=== PATIENT | female | born 1990 ===

== ENCOUNTER 2016-08-08 08:05 | Observation (INO) | payer SELFPAY ==
[2016-08-08] MEDS ORDERED: Phenylephrine 1% Nasal Spray (15 ml) NAS STA (08:12)
[2016-08-08] MEDS ORDERED: Sodium Chloride 0.9% 1,000 ML IV ONE ×2 (08:13→11:27)
--- NOTE | 2016-08-08 08:15 | C.PDOC ---
History Of Present Illness 26-year-old female, is brought to the emergency department by EMS and bystander (acting as historian) with complaints of respiratory distress. Hx limited due to clinical condition. Patient w/ accidental aspiration after taking Rx Motrin pill just prior to arrival. Patient split the pill and swallowed, after which she developed difficulty breathing, and was brought to the ED for further evaluation. Chief Complaint (Nursing): Respiratory Distress Past Medical History Reviewed: Historical Data, Nursing Documentation, Vital Signs Vital Signs: Last Vital Signs Temp 98.7 F 08/08/16 08:06 Pulse 76 08/08/16 08:44 Resp 20 08/08/16 08:44 BP 131/83 08/08/16 08:44 Pulse Ox 100 08/08/16 11:34 Family History: States: Unknown Family Hx Review Of Systems Review Of Systems: ROS cannot be obtained secondary to pt's inabilty to answer questions. Physical Exam - Physical Exam Appears: Other (severe distress. actively coughing. awake. drooling) Head: Atraumatic, Normacephalic Eye(s): bilateral: Normal Inspection, PERRL Neck: Normal ROM Chest: Symmetrical Respiratory: No Stridor, Other (equal breath sounds B/L) Extremity: Normal ROM Neurological/Psych: Oriented x3, Normal Speech ED Course And Treatment - Laboratory Results Result Diagrams: 08/08/16 11:46 08/08/16 11:46 ECG: Interpreted By Me ECG Rhythm: Sinus Rhythm Interpretation Of ECG: twi iii Rate From EC O2 Sat by Pulse Oximetry: 100 Pulse Ox Interpretation: Normal - Radiology CXR: Interpreted by Me CXR Interpretation: Yes: No Acute Disease, Other (NO GROSS FB) - Other Rad NECK X-Ray: Interpreted by Me (NEG) Progress - Time Time: 08:00 - Re-Evaluation Re-evaluation Note: 08:00 Case discussed w/ Dr Gordillo, states he will present to ED to evaluate the patient. Case was discussed w/ pulmonary, Dr Amin for consult, states he will evaluate the patient. Case also discussed w/ Dr Price ENT, states he will evaluate patient at bedside. 08/08/16 08:24 BREATHING, MOD DIST. ACTIVELY DROOLING, SPITTING. STATES UNABLE TO SWALLOW SALIVA 100% RA. POSSIBLE ESOPH OBSTRUCT. PENDING ENT ER EVAL, ANESTHESIA AWARE 08/08/16 09:07 S/P EVAL DR PRICE NO VISUALIZED UPPER AIR FB. CO PERSIST FB SENSATION. VSS. WILL CT 08/08/16 10:[address] SCAN. S/P ATIVAN. PERSIST COUGHING, POOR SALIVA CONTROL 08/08/16 10:44 D/W DR SPICER GI JINGLE WRITER AWARE OF ER FINDINGS WILL EVAL IN MINISTER OF RELIGION STATES PT NOW CONSENTS TO CT SCAN. 08/08/16 11:26 EXAM UNCH PRIOR. S/P EVAL GI FELLOW, PENDING CT REPORT - Data Reviewed Data Reviewed: Diagnostic imaging - Critical Care Citical Care: Excluding Proc Time Critical Care Time: 120 minutes - Continuity of Care Discussed patient case with:: Patient Discussed pt. case with retirement sales consultant/specialty: Anesthesiology, Gastroenterology, Otolaryngology Medical Decision Making Medical Decision Making: Impression Plan: * Chest X-Ray * Phenylephrine, IVF * Reassess and Disposition Disposition Counseled Patient/Family Regarding: Studies Performed, Diagnosis - Disposition Disposition: HOSPITALIZED Disposition Time: 11:31 Condition: STABLE - POA Present On Arrival: None - Clinical Impression Clinical Impression: Esophageal obstruction - Scribe Statement The provider has reviewed the documentation as recorded by the Scribe Tamra Steward All medical record entries made by the Scribe were at my direction and personally dictated by me. I have reviewed the chart and agree that the record accurately reflects my personal performance of the history, physical exam, medical decision making, and the department course for this patient. I have also personally directed, reviewed, and agree with the discharge instructions and disposition. Decision To Admit - Pt Status Changed To: Hospital Disposition Of: Observation - . Bed Request Type: Regular Admitting Physician: Jace Cota Patient Diagnosis: Esophageal obstruction
--- NOTE | 2016-08-08 08:34 | RAD ---
PROCEDURE: CHEST RADIOGRAPH, 1 VIEW HISTORY: choking ro fb COMPARISON: None available. FINDINGS: LUNGS: Clear. PLEURA: No pneumothorax or pleural fluid seen. CARDIOVASCULAR: Normal. OSSEOUS STRUCTURES: No significant abnormalities. VISUALIZED UPPER ABDOMEN: Normal. OTHER FINDINGS: No radiopaque foreign body identified. Nipple ornamentation. IMPRESSION: No focal airspace opacity.
[2016-08-08 08:57] VITALS: O2SAT 100
--- NOTE | 2016-08-08 09:18 | OP ---
PROCEDURE DATE: 08/08/2016 PREOPERATIVE DIAGNOSIS: Dysphagia. POSTOPERATIVE DIAGNOSIS: Dysphagia. PROCEDURE: Flexible laryngoscopy. SIGNIFICANT FINDINGS: No foreign body noted in the throat. DESCRIPTION OF PROCEDURE: The patient was placed in a seated position. The nose has been decongeste d with Afrin and Kelvin-Synephrine. A 0 degree flexible laryngoscope was inserted into the left nasal c avity, passed through the nasopharynx, oropharynx, hypopharynx. The pharyngeal claudio, base of tongue , vallecula, epiglottis, AE folds, false cords, true cords were brought into view. No masses or lesi ons were noted. Secretions were noted in the pyriform sinuses. However, no foreign bodies were note d. The scope was removed. The patient tolerated the procedure well. Dennis Krishnan MD cc: [id number] TT: 08/08/2016 09:16:51 ak
--- NOTE | 2016-08-08 10:22 | RAD ---
PROCEDURE: Radiographs of the neck (soft tissue). HISTORY: CHOKING RO FB COMPARISON: None. TECHNIQUE: Frontal and Lateral Radiographs of the neck, optimized for soft tissue visualization. FINDINGS: SOFT TISSUES: Unremarkable. No radiopaque foreign body seen. CERVICAL SPINE: Grossly unremarkable. OTHER FINDINGS: None. IMPRESSION: Unremarkable radiographs of the soft tissues of the neck. Further imaging can be obtained as per clinical indications.
--- NOTE | 2016-08-08 11:17 | CT ---
PROCEDURE: CT NECK WITHOUT CONTRAST HISTORY: CHOKING RO FOREIGN BODY PILL COMPARISON: None. TECHNIQUE: CT of the neck without intravenous contrast. Coronal and sagittal reformats generated. Radiation dose: DLP 473.56 mGy-cm This CT exam was performed using one or more of the following dose reduction techniques: Automated exposure control, adjustment of the mA and/or kV according to patient size, and/or use of iterative reconstruction technique. FINDINGS: NASOPHARYNX: Unremarkable. SUPRAHYOID NECK: Unremarkable oropharynx, oral cavity, parapharyngeal space and retropharyngeal space. INFRAHYOID NECK: Unremarkable larynx, hypopharynx, and supraglottic space. Vocal cords intact. MASS: None. GLANDS: Parotid and submandibular glands unremarkable. Normal size thyroid gland, without nodule. LYMPH NODES: Normal. No lymphadenopathy. CERVICAL SPINE: No fracture or focal lesion. OTHER FINDINGS: No evidence of radiopaque foreign body in the neck. There is moderate thickening of the proximal esophagus seen at the thoracic inlet. There is heterogeneous low density seen in the in the lumen of the proximal esophagus lumen may represent foreign body or food debris. IMPRESSION: No evidence of radiopaque foreign body in the neck. Moderate thickening of the proximal esophagus seen at the lower neck and thoracic inlet. Heterogeneous low density seen in the lumen of the proximal esophagus ,may represent foreign body or food debris. If indicated further assessment by esophagram may be obtained. Incidentally noted is moderate maxillary sinus mucosal thickening.
--- NOTE | 2016-08-08 11:25 | CT ---
PROCEDURE: CT Chest without contrast HISTORY: R/O FB COMPARISON: None. TECHNIQUE: Contiguous axial images were obtained through the chest without intravenous contrast enhancement. Sagittal and coronal reconstructions were performed. Radiation dose (DLP): 206.42 mGy-cm. This CT exam was performed using one or more of the following dose reduction techniques: Automated exposure control, adjustment of the mA and/or kV according to patient size, and/or use of iterative reconstruction technique. FINDINGS: LUNGS: Clear lungs. Visualized airway clear. MEDIASTINUM: There is proximal esophagus mucosal thickening seen. There is focal hypodensity at the lumen of the proximal esophagus best seen on image 17 series 4 may represent low density foreign body versus fold debris. Unremarkable thoracic aorta. No aneurysm. Normal sized heart. Main pulmonary artery unremarkable. No vascular congestion. No lymphadenopathy. PLEURA: No pleural fluid. No pneumothorax. BONES: No fracture. No destructive lesion. UPPER ABDOMEN: Grossly unremarkable. OTHER FINDINGS: None. IMPRESSION: Thickening of the proximal esophagus at the thoracic inlet and lower neck. Focal hypodensity in the lumen of the proximal esophagus may represents foreign body versus food debris. Further assessment by esophagram may be obtained if clinically warranted.
--- NOTE | 2016-08-08 11:37 | CP.PCM.CON ---
<Jaskaran Napier - Last Filed: 08/08/16 11:31> History of Present Illness - History of Present Illness History of Present Illness: PGY4 GI Fellow Consult Note Patient is a 26yo female with no significant PMHx who presents today to the ED with complaint of dysphagia and globus sensation. She states that earlier today she went to take half an ibuprofen and upon swallowing the pill, noted that it got stuck in her esophagus. Since that time she has been trying to drink water without successful passage of this obstruction. She also has tried inducing vomiting and had her boyfriend/telephonic case manager perform the Heimlich maneuver without relief of symptoms. She notes that this is not the first time she has suffered with symptoms like this, however other methods have been successful prior to coming to the hospital. She has encountered difficulty swallowing solid food in the past and notes that she must chew deliberately before swallowing. A CT performed in the ED does reveal proximal esophageal inflammation with a more distal opacity suggestive of foreign body (presumably the pill). She admits to pain in her throat and inability to swallow her saliva. Denies any SOB, abdominal pain, fever, chills. She has never had a GI evaluation or endoscopy in the past. PMHx: Denies PSHx: Denies FHx: Mother - DM, Brother - PUD Social: Denies tobacco, EtOH or illicit drug use Endo: No prior endoscopic evaluation Review of Systems - Constitutional Constitutional: absent: Anorexia, Chills, Fever, Weight Loss - EENT Eyes: absent: Change in Vision Nose/Mouth/Throat: Dysphagia, Sore Throat - Cardiovascular Cardiovascular: absent: Chest Pain, Dyspnea, Edema - Respiratory Respiratory: absent: Cough, Dyspnea, Excessive Mucous Production - Gastrointestinal Gastrointestinal: Dysphagia. absent: Abdominal Pain, Belching, Bloating, Constipation, Cramping, Diarrhea, Dyspepsia, Hematemesis, Hematochezia, Melena, Nausea, Vomiting - Genitourinary Genitourinary: absent: Dysuria, Urinary Frequency, Urinary Urgency - Musculoskeletal Musculoskeletal: absent: Back Pain, Neck Pain - Integumentary Integumentary: absent: New Lesions, Rash - Neurological Neurological: absent: Dizziness, Numbness, Focal Weakness - Psychiatric Psychiatric: absent: Anxiety, Depression - Endocrine Endocrine: absent: Polydipsia, Polyphagia, Polyuria - Hematologic/Lymphatic Hematologic: absent: Easy Bleeding, Easy Bruising, Lymphadenopathy Past Patient History - Past Social History Smoking Status: Never Smoked - PSYCHIATRIC Hx Substance Use: Yes (social) - SURGICAL HISTORY Hx Surgeries: No - ANESTHESIA Hx Anesthesia: No Meds Allergies/Adverse Reactions: Allergies Allergy/AdvReac Type Severity Reaction Status Date / Time No Known Allergies Allergy Verified 08/08/16 08:12 - Medications Medications: Current Medications Sodium Chloride (Sodium Chloride 0.9%) 1,000 mls @ 100 mls/hr IV .Q10H ONE Stop: 08/08/16 21:26 Physical Exam - Constitutional Appears: Non-toxic - Eye Exam Eye Exam: EOMI, PERRL - ENT Exam ENT Exam: Mucous Membranes Moist, Normal Oropharynx - Neck Exam Neck exam: Negative for: Lymphadenopathy - Respiratory Exam Respiratory Exam: Clear to Auscultation Bilateral. absent: Rales, Rhonchi, Wheezes - Cardiovascular Exam Cardiovascular Exam: RRR, +S1, +S2 - GI/Abdominal Exam GI & Abdominal Exam: Normal Bowel Sounds, Soft. absent: Firm, Guarding, Organomegaly, Rigid, Tenderness - Extremities Exam Extremities exam: Positive for: normal inspection. Negative for: pedal edema - Neurological Exam Neurological exam: Alert, Oriented x3 - Psychiatric Exam Psychiatric exam: Normal Affect, Normal Mood - Skin Skin Exam: Dry, Warm Results - Vital Signs Recent Vital Signs: Last Vital Signs Temp 98.7 F 08/08/16 08:06 Pulse 76 08/08/16 08:44 Resp 20 08/08/16 08:44 BP 131/83 08/08/16 08:44 Pulse Ox 100 08/08/16 11:26 Assessment & Plan - Assessment and Plan (Free Text) Assessment: Patient is a 26yo female with no significant PMHx who presents today to the ED with complaint of dysphagia and globus sensation -Globus sensation with concern for foreign body impaction in the distal esophagus -Dysphagia Plan: -CT chest/neck reviewed; foreign body suspected -Stat CBC, BMP, urine hCG -NPO -Plan for emergent endoscopic evaluation at this time -Further plan following findings of EGD - Date & Time Date: 08/08/16 Time: 11:44 <Owen Sainz MD - Last Filed: 08/08/16 12:43> Meds - Medications Medications: Current Medications Sodium Chloride (Sodium Chloride 0.9%) 1,000 mls @ 100 mls/hr IV .Q10H ONE Stop: 08/08/16 21:26 Results - Vital Signs Recent Vital Signs: Last Vital Signs Temp 98.4 F 08/08/16 12:18 Pulse 77 08/08/16 12:18 Resp 20 08/08/16 12:18 BP 119/62 08/08/16 12:18 Pulse Ox 100 08/08/16 12:18 - Labs Result Diagrams: 08/08/16 11:46 08/08/16 11:46 Labs: Laboratory Results - last 24 hr 08/08/16 08/08/16 08/08/16 11:46 11:54 12:18 WBC 6.8 RBC 5.14 Hgb 7.7 L Hct 28.1 L MCV 54.6 L MCH 15.0 L MCHC 27.5 L RDW 20.1 H Plt Count 349 MPV 9.0 Neut % (Auto) 49.3 L Lymph % (Auto) 33.6 Luce % (Auto) 5.9 Eos % (Auto) 10.8 H Baso % (Auto) 0.4 Neut # 3.4 Lymph # 2.3 Luce # 0.4 Eos # 0.7 Baso # 0.0 Differential Comment PT 11.2 INR 1.0 APTT 28 Sodium 141 Potassium 4.0 Chloride 104 Carbon Dioxide 20 L Anion Gap 21 H BUN 12 Creatinine 0.6 L Est GFR ( Amer) > 60 Est GFR (Non-Af Amer) > 60 Random Glucose 79 Calcium 9.1 Beta HCG, Quant < 2.39 Urine HCG, Qual Negative Blood Type O POSITIVE Attending/Attestation - Attestation I have personally seen and examined this patient.: Yes I have fully participated in the care of the patient.: Yes I have reviewed all pertinent clinical information: Yes Notes (Text): 08/08/16 12:40 This is a 26 yr old F with no past medical history presented to ER with food stuck and globus sensation in esophagus. States had previous such episodes without endoscopic evaluation. Planned for urgent endoscopy with CT findings of thickening of proximal esophagus with food bolus NPO Intubation Urgent EGD Risks, complication including bleeding, perforation explained to the patient and the boyfriend Consent signed
[2016-08-08 11:51] LABS: BASO % 0.4 % (0.0-2.0); EOS # 0.7 K/uL (0.0-0.7); EOS % 10.8 % (0.0-4.0); HEMATOCRIT 28.1 % (34.0-47.0); LYMPH # 2.3 K/uL (1.0-4.3); LYMPH % 33.6 % (20.0-40.0); MEAN CORPUSCULAR HGB CONC 27.5 g/dL (33.0-37.0); MONO # 0.4 K/uL (0.0-0.8); MONO % 5.9 % (0.0-10.0); RED CELL DISTRIBUTION WIDTH 20.1 % (11.5-14.5); WHITE BLOOD COUNT 6.8 K/uL (4.8-10.8)
[2016-08-08 11:53] LABS: MEAN CELL VOLUME 54.6 fL (81.0-99.0)
[2016-08-08 11:59] LABS: CHLORIDE 104 mmol/L (98-107); SODIUM 141 mmol/L (132-148)
[2016-08-08 12:02] LABS: BLOOD UREA NITROGEN 12 mg/dL (7-17); CARBON DIOXIDE 20 mmol/L (22-30); GFR AFRICAN-AMERICAN > 60
[2016-08-08 12:03] LABS: CALCIUM 9.1 mg/dl (8.6-10.4); GLUCOSE,RANDOM 79 mg/dL (65-105)
[2016-08-08] MEDS ORDERED: Lactated Ringer's 500 ML IV ONE ×2 (12:16)
--- NOTE | 2016-08-08 16:12 | CP.PCM.HP ---
<Cindy Gordon - Last Filed: 08/08/16 16:31> History of Present Illness - History of Present Illness History of Present Illness: CC: "pill got stuck in my throat" HPI: Patient is a 26 year old female with no significant past medical history who presented to the emergency department with complaint of dysphagia as earlier today she tried taking part of an ibuprofen for toothache and upon swallowing noted the pill to get stuck in her esophagus. She reported associated shortness of breath and throat pain. Patient attempted to drink water to pass the pill but was unsuccessful. She also tried inducing vomiting without relief of symptoms. Patient admits to cough that was blood tinged. Patient admits to history of "throat tightening" with swallowing pills since she was a child. She states she experiences similar symptoms with swallowing solid food and needs to thoroughly chew prior to swallowing. Patient reports on her way to endoscopy she was able to swallow the pill. Currently she denies abdominal pain, fever, chills, chest pain, shortness of breath, diarrhea, constipation, and hematochezia. Patient denies prior history of anemia. She does admit to feeling more fatigue recently and occasional shortness of breath. Patient states her menstrual cycles are regular and denies heavy bleeding. She denies family history of blood disorder. PMD: none PMHx: Denies Allergies: NKDA PSHx: Denies FHx: Mother - Diabetes Mellitus, Brother - Peptic Ulcer Disease Social: Denies tobacco, alcohol or illicit drug use Endo: No prior endoscopic evaluation Present on Admission - Present on Admission Any Indicators Present on Admission: No History of DVT/PE: No History of Uncontrolled Diabetes: No Urinary Catheter: No Decubitus Ulcer Present: No Review of Systems - Constitutional Constitutional: absent: Anorexia, Chills, Headache, Weight Loss - EENT Eyes: absent: Blurred Vision, Change in Vision Nose/Mouth/Throat: absent: Nasal Congestion, Nasal Discharge - Cardiovascular Cardiovascular: absent: Chest Pain, Dyspnea, Leg Edema, Palpitations, Pedal Edema - Respiratory Respiratory: Dyspnea. absent: Cough, Wheezing, Chest Congestion - Gastrointestinal Gastrointestinal: As Per HPI, Dysphagia. absent: Abdominal Pain, Coffee Ground Emesis, Diarrhea, Dyspepsia, Hematochezia, Melena, Nausea, Vomiting - Genitourinary Genitourinary: absent: Change in Urinary Stream, Dysuria - Reproductive: Female Reproductive:Female: Normal Menses. absent: Heavy Menses, Dysmenorrhea - Musculoskeletal Musculoskeletal: absent: Back Pain - Integumentary Integumentary: absent: Changing Lesions, New Lesions - Neurological Neurological: absent: Dizziness, Numbness, Vertigo, Weakness - Psychiatric Psychiatric: absent: Anxiety, Depression - Endocrine Endocrine: absent: Polyphagia, Polyuria Past Patient History - Past Social History Smoking Status: Never Smoked - PSYCHIATRIC Hx Substance Use: Yes (social) - SURGICAL HISTORY Hx Surgeries: No - ANESTHESIA Hx Anesthesia: No Meds Allergies/Adverse Reactions: Allergies Allergy/AdvReac Type Severity Reaction Status Date / Time No Known Allergies Allergy Verified 08/08/16 08:12 Physical Exam - Constitutional Appears: Non-toxic, No Acute Distress - Head Exam Head Exam: ATRAUMATIC, NORMAL INSPECTION, NORMOCEPHALIC - Eye Exam Eye Exam: EOMI, Normal appearance, PERRL - ENT Exam ENT Exam: Mucous Membranes Moist - Neck Exam Neck exam: Positive for: Full Rom, Normal Inspection - Respiratory Exam Respiratory Exam: Clear to Auscultation Bilateral, NORMAL BREATHING PATTERN. absent: Rales, Rhonchi, Wheezes - Cardiovascular Exam Cardiovascular Exam: +S1, +S2. absent: Tachycardia - GI/Abdominal Exam GI & Abdominal Exam: Normal Bowel Sounds, Soft. absent: Distended, Firm - Extremities Exam Extremities exam: Positive for: normal inspection. Negative for: pedal edema, tenderness - Back Exam Back exam: NORMAL INSPECTION - Neurological Exam Neurological exam: Alert, CN II-XII Intact, Oriented x3, Reflexes Normal - Psychiatric Exam Psychiatric exam: Normal Affect, Normal Mood - Skin Skin Exam: Intact, Normal Color, Warm Results - Vital Signs Recent Vital Signs: Last Vital Signs Temp 97.6 F 08/08/16 13:06 Pulse 74 08/08/16 13:51 Resp 16 08/08/16 13:51 BP 120/70 08/08/16 13:51 Pulse Ox 100 08/08/16 13:51 - Labs Result Diagrams: 08/08/16 11:46 08/08/16 11:46 Labs: Laboratory Results - last 24 hr 08/08/16 08/08/16 08/08/16 11:46 11:54 12:18 WBC 6.8 RBC 5.14 Hgb 7.7 L Hct 28.1 L MCV 54.6 L MCH 15.0 L MCHC 27.5 L RDW 20.1 H Plt Count 349 MPV 9.0 Neut % (Auto) 49.3 L Lymph % (Auto) 33.6 [place] % (Auto) 5.9 Eos % (Auto) 10.8 H Baso % (Auto) 0.4 Neut # 3.4 Lymph # 2.3 [place] # 0.4 Eos # 0.7 Baso # 0.0 Differential Comment PT 11.2 INR 1.0 APTT 28 Sodium 141 Potassium 4.0 Chloride 104 Carbon Dioxide 20 L Anion Gap 21 H BUN 12 Creatinine 0.6 L Est GFR ( Amer) > 60 Est GFR (Non-Af Amer) > 60 Random Glucose 79 Calcium 9.1 Beta HCG, Quant < 2.39 Urine HCG, Qual Negative Blood Type O POSITIVE Antibody Screen Negative Assessment & Plan - Assessment and Plan (Free Text) Assessment: Foreign Body Impaction EGD: proximal esophagitis Chest CT: Thickening of the proximal esophagus of the thoracic inlet and lower neck. Focal hypodensity in the lumen of the proximal esophagus may represent foreign body versus food debris. Soft Tissue Neck CT: No evidence of radiopaque foreign body in the neck. There is moderate thickening of proximal esophagus seen at the thoracic inlet. There is heterogeneous low density seen in the lumen of the proximal esophagus lumen that may represent foreign body or food debris. Moderate maxillary sinus mucosal thickening. Soft Tissue Neck X-Ray: Unremarkable radiographs of soft tissues of the neck Chest X-Ray: No focal airspace opacity Start Full Liquid Diet Microcytic Anemia Hemoglobin 7.7 Hematocrit 28.1 MCV 54.6 RDW 20.1 f/u Iron Studies: iron, TIBC, ferritin, % iron saturation, LDH, reticulocyte count, haptoglobin f/u celiac studies: tissue transglutaminase, endomysial IgA f/u AM labs Prophylaxis Ambulation - Date & Time Date: 08/08/16 Time: 16:45 <Jace Cota - Last Filed: 08/09/16 16:11> Results - Vital Signs Recent Vital Signs: Last Vital Signs Temp 98.4 F 08/08/16 16:53 Pulse 75 08/08/16 16:53 Resp 20 08/08/16 16:53 BP 116/73 08/08/16 16:53 Pulse Ox 100 08/08/16 16:53 - Labs Result Diagrams: 08/08/16 11:46 08/08/16 11:46 Attending/Attestation - Attestation I have personally seen and examined this patient.: Yes I have fully participated in the care of the patient.: Yes I have reviewed all pertinent clinical information: Yes Notes (Text): 08/09/16 16:11 Patient was seen and examined at bedside with the resident. Patient appears comfortable. She status post EGD. Patient does not want to stay overnight in the hospital and she wants to sign out AMA Patient was signed out AMA.
[2016-08-08 16:55] VITALS: BP 116/73; PULSE 75; RESP 20; TEMP 98.4
--- NOTE | 2016-08-09 20:57 | CP.PCM.DIS ---
Provider - Provider Date of Admission: 08/08/16 11:34 Attending physician: Jace Cota MD Primary care physician: none Consults: GI: Dr. Napier, Dr. Sainz Time Spent in preparation of Discharge (in minutes): 31 Diagnosis - Discharge Diagnosis (1) Microcytic anemia Status: Acute (2) Esophageal obstruction Status: Acute Hospital Course - Lab Results Lab Results: Most Recent Lab Values WBC 6.8 K/uL (4.8-10.8) 08/08/16 11:46 RBC 5.14 Mil/uL (3.80-5.20) 08/08/16 11:46 Hgb 7.7 g/dL (11.0-16.0) L 08/08/16 11:46 Hct 28.1 % (34.0-47.0) L 08/08/16 11:46 MCV 54.6 fL (81.0-99.0) L 08/08/16 11:46 MCH 15.0 pg (27.0-31.0) L 08/08/16 11:46 MCHC 27.5 g/dL (33.0-37.0) L 08/08/16 11:46 RDW 20.1 % (11.5-14.5) H 08/08/16 11:46 Plt Count 349 K/uL (130-400) 08/08/16 11:46 MPV 9.0 fL (7.2-11.7) 08/08/16 11:46 Neut % (Auto) 49.3 % (50.0-75.0) L 08/08/16 11:46 Lymph % (Auto) 33.6 % (20.0-40.0) 08/08/16 11:46 [place] % (Auto) 5.9 % (0.0-10.0) 08/08/16 11:46 Eos % (Auto) 10.8 % (0.0-4.0) H 08/08/16 11:46 Baso % (Auto) 0.4 % (0.0-2.0) 08/08/16 11:46 Neut # 3.4 K/uL (1.8-7.0) 08/08/16 11:46 Lymph # 2.3 K/uL (1.0-4.3) 08/08/16 11:46 [place]on # 0.4 K/uL (0.0-0.8) 08/08/16 11:46 Eos # 0.7 K/uL (0.0-0.7) 08/08/16 11:46 Baso # 0.0 K/uL (0.0-0.2) 08/08/16 11:46 Differential Comment 08/08/16 11:46 PT 11.2 SECONDS (9.7-12.2) 08/08/16 11:46 INR 1.0 08/08/16 11:46 APTT 28 SECONDS (21-34) 08/08/16 11:46 Sodium 141 mmol/L (132-148) 08/08/16 11:46 Potassium 4.0 mmol/L (3.6-5.2) 08/08/16 11:46 Chloride 104 mmol/L (98-107) 08/08/16 11:46 Carbon Dioxide 20 mmol/L (22-30) L 08/08/16 11:46 Anion Gap 21 (10-20) H 08/08/16 11:46 BUN 12 mg/dL (7-17) 08/08/16 11:46 Creatinine 0.6 MG/DL (0.7-1.2) L 08/08/16 11:46 Est GFR ( Amer) > 60 08/08/16 11:46 Est GFR (Non-Af Amer) > 60 08/08/16 11:46 Random Glucose 79 mg/dL (65-105) 08/08/16 11:46 Calcium 9.1 mg/dl (8.6-10.4) 08/08/16 11:46 Beta HCG, Quant < 2.39 mIU/ML 08/08/16 11:46 Urine HCG, Qual Negative (NEGATIVE) 08/08/16 12:18 Blood Type O POSITIVE 08/08/16 11:54 Antibody Screen Negative 08/08/16 11:54 - Hospital Course Hospital Course: Patient left AMA. On hospital admission CC: "pill got stuck in my throat" HPI: Patient is a 26 year old female with no significant past medical history who presented to the emergency department with complaint of dysphagia as earlier today she tried taking part of an ibuprofen for toothache and upon swallowing noted the pill to get stuck in her esophagus. She reported associated shortness of breath and throat pain. Patient attempted to drink water to pass the pill but was unsuccessful. She also tried inducing vomiting without relief of symptoms. Patient admits to cough that was blood tinged. Patient admits to history of "throat tightening" with swallowing pills since she was a child. She states she experiences similar symptoms with swallowing solid food and needs to thoroughly chew prior to swallowing. Patient reports on her way to endoscopy she was able to swallow the pill. Currently she denies abdominal pain, fever, chills, chest pain, shortness of breath, diarrhea, constipation, and hematochezia. Patient denies prior history of anemia. She does admit to feeling more fatigue recently and occasional shortness of breath. Patient states her menstrual cycles are regular and denies heavy bleeding. She denies family history of blood disorder. PMD: none PMHx: Denies Allergies: NKDA PSHx: Denies FHx: Mother - Diabetes Mellitus, Brother - Peptic Ulcer Disease Social: Denies tobacco, alcohol or illicit drug use Endo: No prior endoscopic evaluation During hospital course: Foreign Body Impaction EGD: proximal esophagitis Chest CT: Thickening of the proximal esophagus of the thoracic inlet and lower neck. Focal hypodensity in the lumen of the proximal esophagus may represent foreign body versus food debris. Soft Tissue Neck CT: No evidence of radiopaque foreign body in the neck. There is moderate thickening of proximal esophagus seen at the thoracic inlet. There is heterogeneous low density seen in the lumen of the proximal esophagus lumen that may represent foreign body or food debris. Moderate maxillary sinus mucosal thickening. Soft Tissue Neck X-Ray: Unremarkable radiographs of soft tissues of the neck Chest X-Ray: No focal airspace opacity Start Full Liquid Diet Microcytic Anemia Hemoglobin 7.7 Hematocrit 28.1 MCV 54.6 RDW 20.1 f/u Iron Studies: iron, TIBC, ferritin, % iron saturation, LDH, reticulocyte count, haptoglobin f/u celiac studies: tissue transglutaminase, endomysial IgA f/u AM labs Prophylaxis Ambulation - Date & Time of H&P Date of H&P: 08/08/16 Time of H&P: 15:56 Discharge Exam - Head Exam Head Exam: ATRAUMATIC, NORMAL INSPECTION, NORMOCEPHALIC - Eye Exam Eye Exam: EOMI, Normal appearance, PERRL Pupil Exam: PERRL - ENT Exam ENT Exam: Mucous Membranes Moist - Neck Exam Neck exam: Full Rom, Normal Inspection - Respiratory Exam Respiratory Exam: Clear to PA & Lateral, NORMAL BREATHING PATTERN, UNREMARKABLE. absent: Rales, Rhonchi, Wheezes - Cardiovascular Exam Cardiovascular Exam: +S1, +S2. absent: Tachycardia - GI/Abdominal Exam GI & Abdominal Exam: Normal Bowel Sounds, Unremarkable. absent: Firm - Extremities Exam Extremities exam: full ROM, pedal pulses present - Back Exam Back exam: NORMAL INSPECTION - Neurological Exam Neurological exam: Alert, CN II-XII Intact, Oriented x3 - Psychiatric Exam Psychiatric exam: Normal Affect - Skin Skin Exam: Intact, Normal Color, Warm Discharge Plan - Follow Up Plan Condition: STABLE Disposition: AGAINST MEDICAL ADVICE Referrals: Emeli BUCK,MD Owen [Medical Doctor] - Rae Costa MD [Staff Provider] -
--- NOTE | 2016-08-11 18:45 | CARD ---
APPROVED REPORT EKG Measurement Heart [id number] <Conclusion> Normal sinus rhythm with sinus arrhythmia Normal ECG
== END 2016-08-08 17:10 | disposition left against medical advice (07) ==
LOC: C.ER 08:05 → C.3T 11:34
PROVIDERS: ADMIT Internal Medicine; ATTEND Internal Medicine
DX: K20.9 Esophagitis, unspecified (principal); D50.9 Iron deficiency anemia, unspecified; R13.10 Dysphagia, unspecified; K29.70 Gastritis, unspecified, without bleeding; D64.9 Anemia, unspecified
CPT/HCPCS: 31575; 43239; 70360; 70490; 71010; 71250; 80048; 84702; 84703; 85025; 85610; 85730; 86850; 86900; 88305; 88312; 88313; 88342; 93005; 96374; 99285; G0378; J2060; J7040; J7120